=== PATIENT | female | born 1960 | race Caucasian/White ===

== ENCOUNTER 2024-12-20 09:42 | Emergency (ER) | payer OTHER ==
[~2024-12-20] VITALS: Ht 160 cm; Wt 72.1 kg
[~2024-12-20 09:42] MED LIST: TYLENOL-CODEINE1 TAB PO
[2024-12-20] MEDS ORDERED: BISOPROLOL (10:07)
[2024-12-20] MEDS ORDERED: AVONEX IM (10:08)
== END 2024-12-20 13:18 | disposition home or self-care (01) ==
LOC: ER 09:45
DX: B02.9 Zoster without complications (principal); R21 Rash and other nonspecific skin eruption; Z88.6 Allergy status to analgesic agent